=== PATIENT | female | born 2005 | race American Indian/Alaskan Native ===

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

== ENCOUNTER 2023-08-13 19:14 | Emergency (ER) | payer SELFPAY ==
[2023-08-13] MEDS ORDERED: methylPREDNISolone Sodium Succinate 125 MG/2 ML SDV IVPUSH ONE (21:06)
[2023-08-13] MEDS ORDERED: Morphine 4 MG/ML Syringe IVPUSH ONE (21:08)
[2023-08-13] MEDS ORDERED: Naloxone 2 MG/2 ML Syringe IVPUSH PRN (21:08)
[2023-08-13 21:11] VITALS: PULSE 105
[2023-08-13] MEDS ORDERED: Lactated Ringers 1,000 ML IV SCH (21:15)
[2023-08-13 21:29] LABS: BASOPHILS PERCENT AUTO 0.2 % (0.0-1.0); EOSINOPHILS PERCENT AUTO 0.1 % (1.0-3.0); HEMATOCRIT 40.1 % (37.0-47.0); HEMOGLOBIN 12.7 g/dL (12.0-16.0); LYMPHOCYTES PERCENT AUTO 9.1 % (20.5-50.1); MEAN CORPUSCULAR HEMOGLOBIN 26.5 pg (27.0-34.0); MEAN CORPUSCULAR HGB CONC 31.7 g/dL (33.0-35.0); MEAN CORPUSCULAR VOLUME 83.7 fL (80-100); MONOCYTES PERCENT AUTO 9.1 % (2-8); NEUTROPHILS PERCENT AUTO 81.5 % (42.2-75.2); PLATELET COUNT,PLT 284 10^3/uL (150-450); RED BLOOD CELL COUNT 4.79 10^6/uL (4.2-5.4); WHITE BLOOD CELL COUNT,WBC 14.1 10^3/uL (5.0-10.0)
[2023-08-13 21:48] LABS: HCG QUALITATIVE,SERUM NEGATIVE (NEGATIVE)
[2023-08-13 21:50] LABS: A/G RATIO 0.7; ALANINE AMINOTRANSFERASE,ALT 21 U/L (14-59); ALBUMIN 3.5 g/dL (3.4-5.0); ALKALINE PHOSPHATASE 84 U/L (46-116); ANION GAP 18.5 mEq/L (7-13); ASPARTATE AMNIOTRANSFERASE,AST 21 U/L (15-37); BILIRUBIN TOTAL 0.5 mg/dL (0.2-1.0); BLOOD UREA NITROGEN,BUN 7 mg/dL (7-18); BUN/CREATININE RATIO 8.1 (No establ ref range); CALCIUM 9.2 mg/dL (8.5-10.1); CARBON DIOXIDE,CO2 24 mmol/L (21-32); CHLORIDE,CL 98 mmol/L (98-107); CREATININE 0.86 mg/dL (0.55-1.02); EST CRCL DRUG DOSING (CG) 97.68 mL/min; GLUCOSE RANDOM 89 mg/dL (70-99); POTASSIUM,K 3.5 mmol/L (3.5-5.1); PROTEIN TOTAL,TP 8.3 g/dL (6.4-8.2); SODIUM,NA 137 mmol/L (136-145)
[2023-08-13 21:53] LABS: ESTIMATED GFR 99 mL/min (>=60)
[2023-08-13 22:25] LABS: CORONAVIRUS COVID-19 NAA NEGATIVE (NEGATIVE); INFLUENZA A NAA NEGATIVE (NEGATIVE); INFLUENZA B NAA NEGATIVE (NEGATIVE); RESPIRATORY SYNCYTIAL VIR NAA NEGATIVE (NEGATIVE)
[2023-08-14 00:18] VITALS: BP 155/101
== END 2023-08-14 00:02 | disposition home or self-care (01) ==
LOC: DL.ED 19:14
DX: J03.90 Acute tonsillitis, unspecified (principal); R13.10 Dysphagia, unspecified; Z20.822 Contact with and (suspected) exposure to COVID-19
CPT/HCPCS: 0241U; 36415; 80053; 84703; 85025; 87081; 87430; 96361; 96374; 96375; 99283; J2270; J2930; J7120

== ENCOUNTER 2023-08-15 18:31 | Emergency (ER) | payer SELFPAY ==
[2023-08-15] MEDS ORDERED: Iopamidol 612 MG/ML 100 ML Bottle IVPUSH ONE (18:47)
[2023-08-15] MEDS ORDERED: Ketorolac 30 MG/ML SDV IVPUSH ONE (18:51)
[2023-08-15] MEDS: Sodium Chloride 0.9% 10 ML Syringe FLUSH PRN ×2 (18:54→21:07)
[2023-08-15 19:02] LABS: HEMATOCRIT 40.9 % (37.0-47.0); HEMOGLOBIN 13.2 g/dL (12.0-16.0); MEAN CORPUSCULAR HGB CONC 32.3 g/dL (33.0-35.0); MEAN CORPUSCULAR VOLUME 83.6 fL (80-100); PLATELET COUNT,PLT 472 10^3/uL (150-450); RED BLOOD CELL COUNT 4.89 10^6/uL (4.2-5.4); WHITE BLOOD CELL COUNT,WBC 22.4 10^3/uL (5.0-10.0)
[2023-08-15 19:04] LABS: BASOPHILS PERCENT AUTO 0.2 % (0.0-1.0); LYMPHOCYTES PERCENT AUTO 7.6 % (20.5-50.1); NEUTROPHILS PERCENT AUTO 83.2 % (42.2-75.2)
[2023-08-15] MEDS ORDERED: Sodium Chloride 0.9% 1,000 ML IV ONE (19:11)
[2023-08-15 19:16] LABS: LYMPHOCYTES PERCENT MAN 5 % (20-50); MONOCYTES PERCENT MAN 5 % (2-8); SEG NEUTROPHILS PERCENT MAN 90 % (42-75)
[2023-08-15] MEDS ORDERED: Piperacillin/Tazobactam 4.5 GM in Sodium Chloride 0.9% 100 ML IV ONE (19:17)
[2023-08-15 19:19] LABS: A/G RATIO 0.7; ALBUMIN 3.4 g/dL (3.4-5.0); ANION GAP 15.9 mEq/L (7-13); BILIRUBIN TOTAL 0.3 mg/dL (0.2-1.0); BUN/CREATININE RATIO 18.5 (No establ ref range); C-REACTIVE PROTEIN 12.74 ng/dL (<=0.50); CALCIUM 9.4 mg/dL (8.5-10.1); CREATININE 0.92 mg/dL (0.55-1.02); EST CRCL DRUG DOSING (CG) 91.31 mL/min; POTASSIUM,K 3.9 mmol/L (3.5-5.1); PROTEIN TOTAL,TP 8.6 g/dL (6.4-8.2)
[2023-08-15 19:22] LABS: LACTIC ACID 1.8 mmol/L (0.4-2.0)
[2023-08-15 21:50] VITALS: BP 130/79; PULSE 63
== END 2023-08-15 21:45 ==
LOC: DL.ED 18:31
DX: K12.2 Cellulitis and abscess of mouth (principal)
CPT/HCPCS: 36415; 70491; 80053; 83605; 84145; 85025; 86140; 87040; 96365; 96366; 96368; 96375; 99284-25; 99285; J1885; J2543; J3370; J3490; J7030; J7050; Q9967